=== PATIENT | male | born 1960 | race Caucasian/White ===

== ENCOUNTER 2016-12-01 12:02 | Emergency (ER) | payer BC ==
[2016-12-01 14:35] VITALS: BP 126/71
--- NOTE | 2016-12-01 14:45 | UC ---
Eye Complaint HPI - HPI Summary HPI Summary: pt presents with c/o bilateral eye redness, yellow discharge X 4 days. pt c/o "eyes glued shut" each morning X 4 days. - History of Current Complaint Chief Complaint: UCEye Stated Complaint: EYE COMPLAINT Time Seen by Provider: 12/01/16 14:32 Hx Obtained From: Patient Onset/Duration: Gradual Onset, Lasting Days - 4 days Timing: Constant Severity Initially: Mild Severity Currently: Mild Associated Signs And Symptoms: Positive: Drainage (Purulent) - Allergies/Home Medications Allergies/Adverse Reactions: Allergies Allergy/AdvReac Type Severity Reaction Status Date / Time No Known Allergies Allergy Verified 12/01/16 14:28 Home Medications: Home Medications Amoxicillin (*) [Amoxicillin 875 MG (*)] 875 mg PO BID 12/01/16 [History Confirmed 12/01/16] Atorvastatin* [Lipitor 10 MG*] 10 mg PO DAILY 12/01/16 [History Confirmed ] Citalopram TAB* [Celexa TAB*] 10 mg PO DAILY 12/01/16 [History Confirmed ] PMH/Surg Hx/FS Hx/Imm Hx Previously Healthy: Yes - Surgical History Surgical History: Yes Surgery Procedure, Year, and Place: cleft palate repaired as chil - Social History Lives: With Family Alcohol Use: None Substance Use Type: None Smoking Status (MU): Never Smoked Tobacco - Immunization History Most Recent Influenza Vaccination: no Review of Systems Constitutional: Negative Skin: Negative Eyes: Drainage, Eye Redness ENT: Negative Respiratory: Negative Cardiovascular: Negative Gastrointestinal: Negative Genitourinary: Negative Motor: Negative Neurovascular: Negative Musculoskeletal: Negative Neurological: Negative Psychological: Negative All Other Systems Reviewed And Are Negative: Yes Physical Exam Triage Information Reviewed: Yes Appearance: Well-Appearing Vital Signs: Initial Vital Signs Temp 98.2 F 12/01/16 14:30 Pulse 75 12/01/16 14:30 Resp 16 12/01/16 14:30 BP 126/71 12/01/16 14:30 Pulse Ox 96 12/01/16 14:30 Eye Exam: Other Eyes: Positive: Conjunctiva Inflamed, Discharge - yellow ENT Exam: Normal Respiratory Exam: Normal Respiratory: Positive: No respiratory distress Musculoskeletal Exam: Normal Neurological Exam: Normal Psychological Exam: Normal Skin Exam: Normal Eye Complaint Course/Dx - Differential Dx/Diagnosis Differential Diagnosis/HQI/PQRI: Conjunctivitis Provider Diagnoses: conjunctivitis Discharge - Discharge Plan Condition: Stable Disposition: HOME Prescriptions: Polymyx/Trimethoprim OPTH* [Polytrim OPHTH*] 2 drop BOTH EYES Q6H #1 btl Patient Education Materials: Conjunctivitis (ED) Referrals: Ryley ORELLANA,Rosemarie [Primary Care Provider] - If Needed
== END 2016-12-01 14:55 | disposition home or self-care (01) ==
LOC: UCCORT 12:02
DX: H10.9 Unspecified conjunctivitis (principal)
CPT/HCPCS: 99212; G0463

== ENCOUNTER 2018-05-26 09:21 | Emergency (ER) | payer BC ==
[2018-05-26 10:38] VITALS: BP 127/67
--- NOTE | 2018-05-26 11:49 | UC ---
Respiratory Complaint HPI - HPI Summary HPI Summary: cough x 4 days cough is productive , yellow sputum high fever , 102 + , chest tightness, sob no nasal congestion , no sore throat - History of Current Complaint Chief Complaint: UCRespiratory Stated Complaint: FEVER, COUGH Time Seen by Provider: 05/26/18 10:34 Hx Obtained From: Patient Onset/Duration: Gradual Onset, Lasting Days - 4, Still Present Timing: Constant Severity Initially: Moderate Severity Currently: Severe Pain Intensity: 0 Character: Cough: Productive Aggravating Factors: Exertion, Deep Breaths Alleviating Factors: Nothing Associated Signs And Symptoms: Positive: Fever, Chills. Negative: Calf Pain, Calf Swelling, Nasal Congestion - Allergies/Home Medications Allergies/Adverse Reactions: Allergies Allergy/AdvReac Type Severity Reaction Status Date / Time No Known Allergies Allergy Verified 05/26/18 10:38 Home Medications: Home Medications Acetaminophen [Non-Aspirin Pain Relief] 325 mg PO Q6H PRN 05/26/18 [History Confirmed 05/26/18] D-Methorphan/PE/Acetaminophen [Daytime Cold-Flu Relief Sftgl] 2 each PO Q6H PRN 05/26/18 [History Confirmed 05/26/18] Dm/Acetaminophen/Doxylamine [Night Time Multi-Symptom] 2 cap PO Q6HR PRN [History Confirmed 05/26/18] Herbal Flu Med 1 dose PO Q6H PRN 05/26/18 [History] Sambucco 10 ml PO DAILY PRN 05/26/18 [History] PMH/Surg Hx/FS Hx/Imm Hx - Additional Past Medical History Additional PMH: IMPRESSION: LEFT LOWER LOBE INFILTRATE SUGGESTIVE OF PNEUMONIA. 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 - Family History Known Family History: Negative: Diabetes - Social History Alcohol Use: None Substance Use Type: None Smoking Status (MU): Never Smoked Tobacco - Immunization History Most Recent Influenza Vaccination: no Review of Systems All Other Systems Reviewed And Are Negative: Yes Constitutional: Positive: Fever, Chills, Fatigue Skin: Positive: Negative Eyes: Positive: Negative ENT: Positive: Negative Respiratory: Positive: Shortness Of Breath, Cough Cardiovascular: Positive: Negative Is Patient Immunocompromised?: No Physical Exam Triage Information Reviewed: Yes Appearance: Ill-Appearing Vital Signs: Initial Vital Signs Temp 98.1 F 12/11/18 10:33 Pulse 86 05/26/18 10:33 Resp 17 05/26/18 10:33 BP 127/67 05/26/18 10:33 Pulse Ox 96 05/26/18 10:33 Vital Signs Reviewed: Yes Eye Exam: Normal Eyes: Positive: Conjunctiva Clear ENT: Positive: Normal ENT inspection, Hearing grossly normal, Pharynx normal Neck exam: Normal Neck: Positive: Supple, Nontender, No Lymphadenopathy Respiratory: Positive: Chest non-tender, Lungs clear, Normal breath sounds Cardiovascular: Positive: RRR, No Murmur, Pulses Normal Skin Exam: Normal UC Diagnostic Evaluation - Laboratory O2 Sat by Pulse Oximetry: 96 Diagnostic Studies Comment: chest xray : IMPRESSION: LEFT LOWER LOBE INFILTRATE SUGGESTIVE OF PNEUMONIA. Respiratory Course/Dx - Differential Dx/Diagnosis Provider Diagnosis: Pneumonia Discharge - Sign-Out/Discharge Documenting (check all that apply): Patient Departure All imaging exams completed and their final reports reviewed: Yes - Discharge Plan Condition: Stable Disposition: HOME Prescriptions: DOXYcycline CAP(*) [DOXYcycline 100MG CAP(*)] 100 mg PO BID #20 cap Patient Education Materials: Pneumonia (ED) Referrals: Cornelia Govea PA [Primary Care Provider] - 7 Days - Billing Disposition and Condition Condition: STABLE Disposition: Home
== END 2018-05-26 11:56 | disposition home or self-care (01) ==
LOC: UCCORT 09:21
DX: J18.9 Pneumonia, unspecified organism (principal)
CPT/HCPCS: 71046; 99212; G0463